=== PATIENT | female | born 1950 | race Caucasian/White ===

== ENCOUNTER 2018-10-17 07:14 | Day surgery (SDC) | payer MEDICARE ==
[2018-10-12 10:52] VITALS: BP 139/83
[2018-10-12 10:56] LABS: BASOPHILS % (AUTO) 1.9 % (0.0-5.0); EOSINOPHILS % (AUTO) 2.8 % (0.0-8.0); HEMATOCRIT 38.9 % (36-48); MEAN CORPUSCULAR HEMOGLOBIN 34.2 pg (27.0-33.0); MEAN CORPUSCULAR HGB CONC 33.9 g/dL (32.0-36.0); MEAN CORPUSCULAR VOLUME 100.8 fL (79-99); MONOCYTES % (AUTO) 11.9 % (3.0-13.0); NEUTROPHILS % (AUTO) 58.4 % (40.0-77.0); PLATELET COUNT (AUTO) 314 K/uL (130-400); RED BLOOD CELL COUNT(AUTO) 3.86 MIL/uL (4.00-5.50); RED CELL DISTRIBUTION WIDTH 14.6 % (11.0-15.5); WHITE BLOOD COUNT (AUTO) 6.9 K/uL (4.8-10.8)
[2018-10-12 11:08] LABS: CREATININE 0.8 mg/dL (0.5-1.5); POTASSIUM 4.3 mmol/L (3.5-5.1)
--- NOTE | 2018-10-16 12:12 | NUR ---
BMP sodium 130 drawn on 10/12/18, ekg...BMP and Ekg reviewed by Dr Varner, no new orders, ok to proceed with surgery
[2018-10-17] VITALS (12 sets, daily range): BP systolic 110–143; BP diastolic 63–80
[~2018-10-17] VITALS: Ht 157.5 cm; Wt 65.8 kg
[2018-10-17] MEDS: CEFAZOLIN SODIUM 1 GM VIAL IVP SCH ×2 (05:00→10:00)
[~2018-10-17 07:14] MED LIST: ADV250 IH; DICL2100G TP; FOLI1TAB15 PO; HYDR12.54 PO; IBUP-14 PO; IBUP200C5 PO; MONT10TA21 PO; PANT40TA25 PO; TRAZADONE PO
[2018-10-17] MEDS ORDERED: IOPAMIDOL 10 ML VIAL ONE (09:03)
[2018-10-17] MEDS ORDERED: LACTATED RINGERS 1000ML 1,000 ML IV ONE (09:26)
[2018-10-17] MEDS ORDERED: MIDAZOLAM HCL 1 MG/ML 2ML VIAL ONE ×2 (09:34→10:39)
[2018-10-17] MEDS ORDERED: FENTANYL CITRATE PF 50 MCG/1 ML 2ML VIAL ONE (09:34)
[2018-10-17] MEDS ORDERED: LIDOCAINE HCL 1% 20 ML VIAL ONE (09:56)
[2018-10-17] MEDS ORDERED: SODIUM BICARB [NEONATAL] 4.2% 10ML SYG ONE (09:56)
== END 2018-10-17 12:30 | disposition home or self-care (01) ==
LOC: DAH 07:14
PROVIDERS: ATTEND Neurological Surgery
DX: M53.3 Sacrococcygeal disorders, not elsewhere classified (principal); Z98.890 Other specified postprocedural states; L40.50 Arthropathic psoriasis, unspecified; Z79.899 Other long term (current) drug therapy; Z88.8 Allergy status to other drugs, medicaments and biological substances
CPT/HCPCS: 36415; 72202; 80048; 85025; 93005; A4215; A4218; G0260; J0690; J1030; J2250 ×2; J3010; J3490; J7030; J7120; Q9966; 77002

== ENCOUNTER 2018-12-26 05:45 | Day surgery (SDC) | payer MEDICARE ==
[2018-12-25 12:30] LABS: BASOPHILS % (AUTO) 1.1 % (0.0-5.0); EOSINOPHILS % (AUTO) 2.5 % (0.0-8.0); LYMPHOCYTES % (AUTO) 21.3 % (21.0-51.0); MEAN CORPUSCULAR HEMOGLOBIN 35.6 pg (27.0-33.0); MEAN CORPUSCULAR HGB CONC 35.5 g/dL (32.0-36.0); MEAN CORPUSCULAR VOLUME 100.2 fL (79-99); MONOCYTES % (AUTO) 9.8 % (3.0-13.0); NEUTROPHILS % (AUTO) 65.3 % (40.0-77.0); PLATELET COUNT (AUTO) 318 K/uL (130-400); RED BLOOD CELL COUNT(AUTO) 4.09 MIL/uL (4.00-5.50); RED CELL DISTRIBUTION WIDTH 13.7 % (11.0-15.5); WHITE BLOOD COUNT (AUTO) 6.5 K/uL (4.8-10.8)
[2018-12-25 12:37] LABS: CREATININE 0.7 mg/dL (0.5-1.5); POTASSIUM 4.1 mmol/L (3.5-5.1)
[2018-12-25 13:06] VITALS: BP 164/87
--- NOTE | 2018-12-25 13:08 | NUR ---
PER PATIENT SHE HAS A TOOTH INFECTION, PER PATIENT SHE TOLD DR. THRASHER. ANTIBIOTIC CLINDAMYCIN PO FOR A MONTH PENDING TO GET TOOTH REMOVED BY DR. CATHERINE NO FEVER NO PAIN PER PATIENT. CALLED DR. SOMERS TO NOTIFY, PENDING CALLBACK.
--- NOTE | 2018-12-25 13:19 | NUR ---
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 N NEW ORDERS RECEIVED.
--- NOTE | 2018-12-25 14:49 | NUR ---
NOTIFIED DOCTOR SIX IN REGARDS TO SODIUM LEVEL OF 128, NEW ORDERS TO REPEAT SODIUM LEVEL IN AM.
[2018-12-25] MEDS: CEFAZOLIN SODIUM 1 GM VIAL IVP SCH (17:15)
[~2018-12-26] VITALS: Ht 157.5 cm; Wt 66.5 kg
[2018-12-26] VITALS (11 sets, daily range): BP systolic 118–151; BP diastolic 68–77
[~2018-12-26 05:45] MED LIST changes: -DICL2100G TP; -IBUP-14 PO; -TRAZADONE PO
[2018-12-26] MEDS ORDERED: LACTATED RINGERS 1000ML 1,000 ML IV ONE ×2 (06:08→07:43)
[2018-12-26] MEDS ORDERED: LIDOCAINE PF 2% 5ML ABBOJECT ONE (06:54)
[2018-12-26] MEDS ORDERED: ONDANSETRON HCL 4 MG/2 ML VIAL ONE (06:55)
[2018-12-26] MEDS ORDERED: PROPOFOL 10 MG/ML 20ML VIAL IV ONE (06:55)
[2018-12-26] MEDS ORDERED: FENTANYL CITRATE PF 50 MCG/1 ML 2ML VIAL ONE (06:55)
[2018-12-26] MEDS ORDERED: DEXAMETHASONE SOD PHOSPHATE 10MG/ML 1ML VIAL ONE (06:55)
[2018-12-26] MEDS ORDERED: MIDAZOLAM HCL 1 MG/ML 2ML VIAL ONE (06:55)
[2018-12-26] MEDS ORDERED: LIDOCAINE HCL 1% MDV 50ML VIAL ONE (07:10)
[2018-12-26] MEDS ORDERED: SODIUM BICARB [NEONATAL] 4.2% 10ML SYG ONE (07:10)
[2018-12-26] MEDS: CEFAZOLIN SODIUM 1 GM VIAL IVP SCH (07:30)
[2018-12-26] MEDS ORDERED: IOPAMIDOL 10 ML VIAL ONE (07:46)
[2018-12-26] MEDS ORDERED: ISOVUE-M 200 20 ML VIAL IT ONE (07:49)
[2018-12-26] MEDS ORDERED: DiphenhydrAMINE HCL 50 MG/ML VIAL ONE (07:56)
[2018-12-26] MEDS ORDERED: BUPIVACAINE/EPI/PF 0.25% 30ML VIAL IJ ONE (08:28)
[2018-12-26] MEDS ORDERED: THROMBIN-JMI 5000 UNIT/VIAL TP ONE (08:28)
[2018-12-26] MEDS ORDERED: DURAMORPH PF1 MG/ML 10ML AMP IV ONE (08:28)
[2018-12-26] MEDS ORDERED: TRAZ-185 PO (08:40)
[2018-12-26] MEDS ORDERED: CLIN150C10 PO (08:40)
== END 2018-12-26 09:51 | disposition home or self-care (01) ==
LOC: DAH 05:45
PROVIDERS: ATTEND Neurological Surgery
DX: M53.3 Sacrococcygeal disorders, not elsewhere classified (principal); Z79.899 Other long term (current) drug therapy; Z88.5 Allergy status to narcotic agent; Z91.048 Other nonmedicinal substance allergy status
CPT/HCPCS: 36415 ×2; 80048; 84295; 85025; 93005; A4215; G0260; J0690 ×2; J1030; J1100; J1200; J2001; J2250; J2405; J2704; J3010; J3490 ×3; J7030; J7120 ×2; Q9966; 77003; J2274

== ENCOUNTER → 2019-02-09 | Outpatient (CLI) | payer MEDICARE ==
[~2019-02-09] MED LIST changes: +CLIN150C10 PO; +TRAZ-185 PO
== END | disposition home or self-care (01) ==
LOC: RAH 13:49
PROVIDERS: ATTEND Neurological Surgery
DX: M48.48XA Fatigue fracture of vertebra, sacral and sacrococcygeal region, initial encounter for fracture (principal); M51.36 Other intervertebral disc degeneration, lumbar region; Z90.710 Acquired absence of both cervix and uterus; Z96.641 Presence of right artificial hip joint
CPT/HCPCS: 72192

== ENCOUNTER 2021-06-22 15:17 | Inpatient (IN) | payer MEDICARE ==
[~2021-06-22] VITALS: Ht 157.5 cm; Wt 67.4 kg
[~2021-06-22 15:17] MED LIST changes: +CLIN-116 PO; -CLIN150C10 PO; -PANT40TA25 PO; +PANT40TA54 PO
[2021-06-22 15:58] LABS: BASOPHILS % (AUTO) 0.6 % (0.0-5.0); EOSINOPHILS % (AUTO) 2.2 % (0.0-8.0); HEMATOCRIT 40.8 % (36-48); LYMPHOCYTES % (AUTO) 18.4 % (21.0-51.0); MEAN CORPUSCULAR HEMOGLOBIN 34.4 pg (27.0-33.0); MEAN CORPUSCULAR VOLUME 98.1 fL (79-99); MONOCYTES % (AUTO) 8.3 % (3.0-13.0); NEUTROPHILS % (AUTO) 70.2 % (40.0-77.0); PLATELET COUNT (AUTO) 291 K/uL (130-400); RED BLOOD CELL COUNT(AUTO) 4.16 MIL/uL (4.00-5.50); RED CELL DISTRIBUTION WIDTH 13.3 % (11.0-15.5)
[2021-06-22] MEDS ORDERED: ACETAMINOPHEN 325 MG TAB PO ONE (16:00)
[2021-06-22 16:10] LABS: AMPHET/METH SCREEN,URINE NEGATIVE (NEGATIVE); BARBITURATE SCREEN, URINE NEGATIVE (NEGATIVE); BENZODIAZEPINES SCREEN,URINE NEGATIVE (NEGATIVE); CANNABINOID SCREEN,URINE NEGATIVE (NEGATIVE); COCAINE SCREEN,URINE NEGATIVE (NEGATIVE); OPIATE SCREEN,URINE NEGATIVE (NEGATIVE); PHENCYCLIDINE SCREEN,URINE NEGATIVE (NEGATIVE)
[2021-06-22 16:15] LABS: CREATININE 0.8 mg/dL (0.5-1.5); POTASSIUM 3.6 mmol/L (3.5-5.1)
[2021-06-22 16:20] LABS: ALBUMIN 4.1 g/dL (3.5-5.0); TOTAL PROTEIN, SERUM 7.5 g/dL (6.0-8.3)
[2021-06-22] MEDS ORDERED: KETOROLAC 30MG VIAL (30MG/ML) ONE (17:29)
[2021-06-22] MEDS ORDERED: KETOROLAC 30MG VIAL (30MG/ML) IV ONE (17:30)
[2021-06-22] MEDS ORDERED: ONDANSETRON 4MG INJ IVP ONE (18:00)
[2021-06-22] MEDS ORDERED: LABETALOL 20MG SYG IV ONE (18:00)
[2021-06-22] MEDS ORDERED: CYCLOBENZAPRINE HCL 10 MG TABLET PO ONE (18:00)
[2021-06-22] MEDS ORDERED: ONDANSETRON 4MG INJ ONE (18:01)
[2021-06-22] MEDS ORDERED: METOPROLOL TARTRATE 1 MG/ML 5ML VIAL IV ONE (18:02)
[2021-06-22] MEDS ORDERED: CYCLOBENZAPRINE HCL 10 MG TABLET ONE (18:02)
[2021-06-22] MEDS ORDERED: MORPHINE 4 MG SYG IV ONE ×2 (18:30→21:00)
[2021-06-22] MEDS ORDERED: MORPHINE 4 MG SYG ONE (18:35)
[2021-06-22] MEDS ORDERED: IOHEXOL-350 75 ML VIAL IV ONE (19:26)
[2021-06-22] MEDS ORDERED: LIDOCAINE 5% TOPICAL PATCH TP ONE (21:00)
[2021-06-22] MEDS: DIAZEPAM 5 MG/ML 2 ML SYG IV PRN (21:14)
[2021-06-22 23:19] LABS: APPEARANCE,URINE Clear (CLEAR); BILIRUBIN,URINE Negative (NEGATIVE); COLOR,URINE Yellow (YELLOW); GLUCOSE, URINE (UA) Negative (NEGATIVE); KETONES,URINE Negative (NEGATIVE); LEUKOCYTE ESTERASE ,URINE Negative (NEGATIVE); NITRATE,URINE Negative (NEGATIVE); OCCULT BLOOD,URINE Nonhemolyzed Trace (NEGATIVE); PROTEIN,URINE Negative (NEGATIVE); UROBILINOGEN,URINE 0.2 mg/dL (0.2-1.0)
[2021-06-22 23:26] LABS: BACTERIA,URINE None Seen /HPF (None Seen); RBC,URINE 0-1 /HPF (0-1); SQUAMOUS EPITHELIAL CELL,UR Rare /HPF (0-2); WBC,URINE None Seen /HPF (0-1)
[2021-06-23] MEDS ORDERED: MORPHINE 2 MG SYG IV PRN (01:30)
[2021-06-23] MEDS ORDERED: MORPHINE 4 MG SYG IV PRN (01:30)
[2021-06-23] MEDS: 0.9%NACL 1000ML 1,000 ML IV SCH ×2 (01:40→14:14)
[2021-06-23] MEDS ORDERED: OLME5TAB6 PO (01:45)
[2021-06-23 03:10] VITALS: BP 150/77
[2021-06-23] MEDS: ACETAMINOPHEN 325 MG TAB PO PRN ×2 (03:52→21:37)
[2021-06-23 08:00] VITALS: BP 133/79
[2021-06-23] MEDS ORDERED: GABAPENTIN 100 MG CAPSULE PO ONE (08:00)
[2021-06-23] MEDS: FAMOTIDINE 20MG VIAL IV SCH (08:19)
[2021-06-23] MEDS: LIDOCAINE 5% TOPICAL PATCH TP SCH (08:20)
[2021-06-23] MEDS: ENOXAPARIN SODIUM 30 MG/0.3 ML SQ SCH (08:20)
[2021-06-23 12:00] VITALS: BP 141/83
[2021-06-23 12:42] LABS: CREATININE 0.7 mg/dL (0.5-1.5); MAGNESIUM 1.9 mg/dL (1.80-2.40); POTASSIUM 3.4 mmol/L (3.5-5.1)
[2021-06-23] MEDS ORDERED: POTASSIUM CHLORIDE 20MEQ/100ML 100 ML IV PRN (13:00)
[2021-06-23] MEDS ORDERED: LIDOCAINE HCL-MPF 1% 2ML VIAL IV PRN (13:00)
[2021-06-23] MEDS ORDERED: POTASSIUM CHLORIDE 10% ELIXIR 20 MEQ/15 ML UDCUP PO PRN (13:00)
[2021-06-23] MEDS: KCL 20 MEQ ERTAB PO PRN ×2 (14:15→18:25)
[2021-06-23] MEDS: MAGNESIUM 2GM PREMIX 50ML 50 ML IV PRN (14:15)
[2021-06-23] MEDS: ONDANSETRON 4MG INJ IV PRN ×2 (15:02→18:25)
[2021-06-23 16:00] VITALS: BP 169/88
[2021-06-23] MEDS ORDERED: ONDANSETRON 4MG INJ IVP ONE (18:30)
[2021-06-23 21:16] VITALS: BP 191/89
[2021-06-23] MEDS: GABAPENTIN 100 MG CAPSULE PO SCH (21:36)
[2021-06-23] MEDS: HYDRALAZINE 20MG/ML VIAL IV PRN (22:27)
[2021-06-24] VITALS: BP 167/92
[2021-06-24] MEDS: 0.9%NACL 1000ML 1,000 ML IV SCH ×2 (04:10→17:30)
[2021-06-24] MEDS: HYDRALAZINE 20MG/ML VIAL IV PRN ×2 (04:40→15:29)
[2021-06-24] MEDS: ACETAMINOPHEN 325 MG TAB PO PRN ×2 (04:52→15:31)
[2021-06-24 04:53] LABS: BASOPHILS % (AUTO) 0.5 % (0.0-5.0); EOSINOPHILS % (AUTO) 0.5 % (0.0-8.0); HEMATOCRIT 39.4 % (36-48); LYMPHOCYTES % (AUTO) 17.7 % (21.0-51.0); MEAN CORPUSCULAR HEMOGLOBIN 34.1 pg (27.0-33.0); MEAN CORPUSCULAR HGB CONC 35.3 g/dL (32.0-36.0); MEAN CORPUSCULAR VOLUME 96.6 fL (79-99); MONOCYTES % (AUTO) 6.3 % (3.0-13.0); NEUTROPHILS % (AUTO) 74.6 % (40.0-77.0); PLATELET COUNT (AUTO) 287 K/uL (130-400); RED BLOOD CELL COUNT(AUTO) 4.08 MIL/uL (4.00-5.50); RED CELL DISTRIBUTION WIDTH 12.9 % (11.0-15.5); WHITE BLOOD COUNT (AUTO) 7.5 K/uL (4.8-10.8)
[2021-06-24 05:06] LABS: CREATININE 0.6 mg/dL (0.5-1.5); PHOSPHORUS 2.4 mg/dL (2.5-4.9); POTASSIUM 3.5 mmol/L (3.5-5.1)
[2021-06-24 07:45] VITALS: BP 166/88
[2021-06-24] MEDS: ENOXAPARIN SODIUM 30 MG/0.3 ML SQ SCH (09:42)
[2021-06-24] MEDS: LIDOCAINE 5% TOPICAL PATCH TP SCH (09:42)
[2021-06-24] MEDS: FAMOTIDINE 20MG VIAL IV SCH (09:46)
[2021-06-24] MEDS: ONDANSETRON 4MG INJ IV PRN (09:46)
[2021-06-24] MEDS: LISINOPRIL 10 MG TABLET PO SCH (09:46)
[2021-06-24] MEDS: GABAPENTIN 100 MG CAPSULE PO SCH ×2 (09:46→20:11)
[2021-06-24 11:50] VITALS: BP 186/94
[2021-06-24] MEDS ORDERED: 0.9% NACL 500ML IV.SOLN 500 ML IV SCH (12:00)
[2021-06-24] MEDS: PHARMACY COMMUNICATION MISC SCH ×4 (12:00→15:00)
[2021-06-24] MEDS: DIAZEPAM 5 MG/ML 2 ML SYG IV PRN (13:29)
[2021-06-24] MEDS: MAGNESIUM 2GM PREMIX 50ML 50 ML IV PRN (15:33)
[2021-06-24 15:35] VITALS: BP 141/78
[2021-06-24] MEDS ORDERED: IBUPROFEN 600 MG TABLET PO PRN (19:00)
[2021-06-24 20:13] VITALS: BP 151/84
[2021-06-24] MEDS ORDERED: TRAZODONE HCL 50 MG TAB PO SCH (23:38)
[2021-06-24 23:50] VITALS: BP 146/65
[2021-06-25] MEDS: KCL 20 MEQ ERTAB PO PRN (00:03)
[2021-06-25 03:41] VITALS: BP 148/76
[2021-06-25 04:54] LABS: HEMATOCRIT 37.7 % (36-48); MEAN CORPUSCULAR HGB CONC 35.3 g/dL (32.0-36.0); MEAN CORPUSCULAR VOLUME 96.4 fL (79-99); PLATELET COUNT (AUTO) 294 K/uL (130-400); RED BLOOD CELL COUNT(AUTO) 3.91 MIL/uL (4.00-5.50); RED CELL DISTRIBUTION WIDTH 13.2 % (11.0-15.5); WHITE BLOOD COUNT (AUTO) 9.3 K/uL (4.8-10.8)
[2021-06-25 05:07] LABS: CREATININE 0.6 mg/dL (0.5-1.5); MAGNESIUM 2.1 mg/dL (1.80-2.40); PHOSPHORUS 2.5 mg/dL (2.5-4.9); POTASSIUM 3.7 mmol/L (3.5-5.1); THYROID STIMULATING HORMONE 2.99 uIU/mL (0.36-3.74); URIC ACID 1.7 mg/dL (2.6-7.2)
[2021-06-25 05:50] LABS: LYMPHOCYTES % (MANUAL) 18 % (22-44); MONOCYTES % (MANUAL) 14 % (2-9); SEGMENTED NEUTROPHILS % 68 % (40-70)
[2021-06-25 05:51] LABS: MAN.DIFF COMMENT-IMPRESSION MANUAL DIFFERENTIAL; PLATELET MORPHOLOGY COMMENT ADEQUATE
[2021-06-25] MEDS: 0.9%NACL 1000ML 1,000 ML IV SCH ×2 (06:50→20:10)
[2021-06-25 07:45] VITALS: BP 178/88
[2021-06-25] MEDS: FAMOTIDINE 20MG VIAL IV SCH (09:45)
[2021-06-25] MEDS: GABAPENTIN 100 MG CAPSULE PO SCH ×2 (09:45→21:27)
[2021-06-25] MEDS: LISINOPRIL 10 MG TABLET PO SCH (09:45)
[2021-06-25] MEDS: ENOXAPARIN SODIUM 30 MG/0.3 ML SQ SCH (09:46)
[2021-06-25] MEDS: LIDOCAINE 5% TOPICAL PATCH TP SCH (09:47)
[2021-06-25 11:40] VITALS: BP 174/93
[2021-06-25 14:40] LABS: ABG BASE EXCESS -5.5 mmol/L (-2.0-3.0); ABG HCO3 16.4 mmol/L (21.0-28.0); ABG OXYGEN SATURATION 97.5 % (95.0-99.0); ABG PCO2 24 mmHg (32-45)
[2021-06-25 15:30] VITALS: BP 164/103
[2021-06-25] MEDS: HYDRALAZINE 20MG/ML VIAL IV PRN (17:10)
[2021-06-25] MEDS ORDERED: ACETAMINOPHEN 325 MG TAB PO PRN (19:30)
[2021-06-25 19:54] VITALS: BP 100/61
[2021-06-25 23:31] VITALS: BP 126/78
[2021-06-26 04:22] VITALS: BP 129/92
[2021-06-26 08:51] VITALS: BP 146/95
[2021-06-26] MEDS: ENOXAPARIN SODIUM 30 MG/0.3 ML SQ SCH (09:00)
[2021-06-26 10:55] VITALS: BP 154/95
[2021-06-26 11:02] LABS: CREATININE 0.7 mg/dL (0.5-1.5)
[2021-06-26] MEDS ORDERED: DIAZEPAM 5 MG/ML 2 ML SYG IV PRN (11:30)
[2021-06-26] MEDS ORDERED: KCL 20 MEQ ERTAB PO SCH ×3 (11:30→19:00)
[2021-06-26] MEDS: FAMOTIDINE 20MG VIAL IV SCH (11:31)
[2021-06-26] MEDS: LISINOPRIL 10 MG TABLET PO SCH (11:32)
[2021-06-26] MEDS: LIDOCAINE 5% TOPICAL PATCH TP SCH (11:36)
[2021-06-26] MEDS: GABAPENTIN 100 MG CAPSULE PO SCH ×3 (12:42→14:08)
[2021-06-26 15:47] VITALS: BP 157/95
[2021-06-26 16:57] VITALS: BP 142/90
[2021-06-26] MEDS ORDERED: GABA-529 PO (17:22)
[2021-06-26] MEDS ORDERED: TRAZODONE HCL 50 MG TAB PO SCH (21:00)
== END 2021-06-26 18:30 | disposition home or self-care (01) | DRG 554 ==
LOC: EDH 15:17 → EDHIP 06-23 01:08 → OBSVTOIN 06-23 01:08 → 3BH 06-23 02:35
PROVIDERS: ADMIT Internal Medicine; ATTEND Internal Medicine
DX: M19.90 Unspecified osteoarthritis, unspecified site (principal); E87.1 Hypo-osmolality and hyponatremia; F10.239 Alcohol dependence with withdrawal, unspecified; M54.50 Low back pain, unspecified; I10 Essential (primary) hypertension; J44.9 Chronic obstructive pulmonary disease, unspecified; N83.202 Unspecified ovarian cyst, left side; K57.90 Diverticulosis of intestine, part unspecified, without perforation or abscess without bleeding; G47.10 Hypersomnia, unspecified; K82.8 Other specified diseases of gallbladder; K80.20 Calculus of gallbladder without cholecystitis without obstruction; E87.6 Hypokalemia; G89.29 Other chronic pain; Z96.653 Presence of artificial knee joint, bilateral; Z79.899 Other long term (current) drug therapy; Z88.8 Allergy status to other drugs, medicaments and biological substances; Z82.3 Family history of stroke; Z82.5 Family history of asthma and other chronic lower respiratory diseases; Z82.49 Family history of ischemic heart disease and other diseases of the circulatory system
CPT/HCPCS: 36415; 36600; 72072; 74177; 80048; 80053; 80305; 81001; 82150; 82533; 82550; 82803; 83690; 83735; 84100; 84295; 84443; 84484; 84550; 85025; 93005; G0378; J0360; J1650; J1885; J2270; J2405; J3360; J3475; J3490; J7030; Q9967

== ENCOUNTER → 2021-08-12 | Outpatient (CLI) | payer MEDICARE ==
[~2021-08-12] MED LIST changes: +GABA-529 PO; -HYDR12.54 PO; -IBUP200C5 PO; +OLME5TAB6 PO
== END | disposition home or self-care (01) ==
LOC: RAH 09:51
PROVIDERS: ATTEND Neurological Surgery
DX: M54.14 Radiculopathy, thoracic region (principal)
CPT/HCPCS: 72146